=== PATIENT | male | born 1935 | race Caucasian/White ===

== ENCOUNTER → 2020-04-28 10:02 | Outpatient (BNVA) | payer MEDICARE, SELFPAY | PROVIDERS: PCP Internal Medicine; Referring Provider Internal Medicine; Visit Provider Urology | DX: Z76.89 Persons encountering health services in other specified circumstances (principal) | CPT/HCPCS: Q3014 ==

== ENCOUNTER → 2020-10-26 15:29 | Outpatient (BNVA) | payer MEDICARE, SELFPAY | PROVIDERS: PCP Internal Medicine; Visit Provider Urology | DX: C61 Malignant neoplasm of prostate (principal); R97.21 Rising PSA following treatment for malignant neoplasm of prostate | CPT/HCPCS: Q3014 ==

== ENCOUNTER → 2021-03-03 09:35 | Outpatient (BNVA) | payer MEDICARE, SELFPAY | PROVIDERS: PCP Internal Medicine; Visit Provider Urology | CPT/HCPCS: Q3014 ==

== ENCOUNTER → 2021-06-29 08:11 | Outpatient (BNVA) | payer MEDICARE, SELFPAY | PROVIDERS: PCP Internal Medicine; Visit Provider Urology | DX: Z13.89 Encounter for screening for other disorder (principal) | CPT/HCPCS: Q3014 ==

== ENCOUNTER → 2021-10-27 08:43 | Outpatient (BNVA) | payer MEDICARE, SELFPAY | PROVIDERS: PCP Internal Medicine; Visit Provider Urology | DX: C61 Malignant neoplasm of prostate (principal); R97.21 Rising PSA following treatment for malignant neoplasm of prostate | CPT/HCPCS: Q3014 ==

== ENCOUNTER 2021-11-23 09:23 | Outpatient (REF) | payer MEDICARE, SELFPAY ==
--- NOTE | ~2021-11-23 | MM_ITS ---
EXAMINATION: BONE DENSITOMETRY CLINICAL INDICATION: Rising PSA following treatment for malignant neoplasm. COMPARISON: This is the patient's baseline examination. TECHNIQUE: Using a [employer] DXA System (software version: 13.1) manufactured by [employer], dual-energy x-ray absorptiometry was performed of the lumbar spine and left hip. The images are of good technical quality. Summary results are attached. FINDINGS: AP SPINE L1-L4: BMD 1.233 g/cm2, Z-score 0.9, T-score 0.1, normal. LEFT FEMUR, NECK: BMD 0.779 g/cm2, Z-score -0.5, T-score -2.2, osteopenia. LEFT FEMUR, TOTAL: BMD 0.893 g/cm2, Z-score 0.0, T-score -1.4, osteopenia. IDENTIFIED RISK FACTORS: Height loss, family history (parental hip fracture). HISTORY OF FRACTURE: Wrist. MEDICATIONS: None listed. MM/XR DEXA axial skeleton IMPRESSION: 1. DIAGNOSIS: Osteopenia based on the lowest T-score value of -2.2 in the femoral neck applying World Health Organization criteria. 2. 10-YEAR FRACTURE RISK PREDICTION, FRAX: Major osteoporotic fracture (clinical spine, forearm, hip or shoulder) 12.2%. Hip fracture 5.1%. 3. Treatment Recommendations: NOF guidelines recommend consideration for treatment in postmenopausal women and men age 50 and older presenting with the following: -A hip or vertebral (clinical or morphometric) fracture. -T-score less than or equal to -2.5 at the femoral neck or spine after appropriate evaluation to exclude secondary causes. -Low bone mass at the hip or spine and a 10-year fracture probability by FRAX of greater than or equal to 3% for hip fracture or greater than or equal to 20% for major osteoporotic fracture based on the [place] adapted WHO algorithm. 4. Other Recommendations: All treatment decisions require clinical judgment and consideration of individual patient factors, including patient preferences, comorbidities, previous drug use, risk factors not captured in the FRAX model (e.g. frailty, falls, vitamin D deficiency, increased bone turnover, interval significant decline in bone density) and possible under or overestimation of fracture risk by FRAX. Additional medical evaluation for secondary cause of low bone mineral density may be appropriate. FUTURE SCAN RECOMMENDATION: People with diagnosed cases of osteoporosis or at high risk for fracture should have regular bone mineral density tests. For patients eligible for Medicare, routine testing is allowed once every 2 years. The testing frequency can be increased to one year for patients who have rapidly progressing disease, those who are receiving or discontinuing medical therapy to restore bone mass, or have additional risk factors.
== END 2021-11-23 09:24 | disposition home or self-care (01) ==
LOC: HO.MAMMO 09:23
PROVIDERS: Visit Provider Urology
DX: Z13.820 Encounter for screening for osteoporosis (principal); M85.88 Other specified disorders of bone density and structure, other site; R97.21 Rising PSA following treatment for malignant neoplasm of prostate
CPT/HCPCS: 77080

== ENCOUNTER → 2021-12-04 09:25 | Outpatient (REF) | payer MEDICARE, SELFPAY ==
--- NOTE | ~2021-12-04 | NM_ITS ---
EXAMINATION: NM BONE SCAN OF THE WHOLE BODY CLINICAL INFORMATION: Prostate neoplasm. COMPARISON: No films to compare. TECHNIQUE: Multiple gamma scintillation camera images of the whole body were performed 3.25 hours following the intravenous administration of 28 mCi Tc-99m MDP. FINDINGS: In the head, some uptake in the maxillary region and sinus region may be related to dental/sinus disease. In the thoracic cage and upper extremities, some uptake in the partially visualized wrist on the right and base of the thumb on the left. These areas are only partially seen. These may be degenerative in nature. In the spine, some uptake at the cervicothoracic junction on the right. This may be degenerative. Uptake is mild. Of more concern here is block-like uptake at D11 . This is suspicious. Mild uptake in the lower lumbar region at L4-L5 on the right and at L5-S1 on the left which may be degenerative. In the pelvis, unremarkable. In the lower extremities, some uptake about the knees is likely degenerative and some mild spotty uptake in the tarsal regions likely degenerative. No other definite bony abnormalities are noted. The urinary bladder and faint visualization of both kidneys are noted. NM/NM bone scan whole body IMPRESSION: Suspicious uptake at the level of D11 . Further evaluation is warranted. A metastatic lesion would need to be considered here. Otherwise more mild areas of uptake in the spine which are likely degenerative but plain films would be recommended to fully evaluate versus CT. Other areas described are likely degenerative in nature.
== END ==
LOC: HO.NUCMED 09:25
PROVIDERS: PCP Internal Medicine; Visit Provider Urology
DX: C61 Malignant neoplasm of prostate (principal); C79.51 Secondary malignant neoplasm of bone; R97.21 Rising PSA following treatment for malignant neoplasm of prostate
CPT/HCPCS: 78306; A9503

== ENCOUNTER → 2021-12-27 13:24 | Outpatient (BNVA) | payer MEDICARE, SELFPAY | PROVIDERS: PCP Internal Medicine; Visit Provider Urology | DX: R97.21 Rising PSA following treatment for malignant neoplasm of prostate (principal); C61 Malignant neoplasm of prostate; N40.1 Benign prostatic hyperplasia with lower urinary tract symptoms; N13.8 Other obstructive and reflux uropathy | CPT/HCPCS: Q3014 ==

== ENCOUNTER → 2022-05-01 12:56 | Outpatient (BNVA) | payer MEDICARE, SELFPAY | PROVIDERS: PCP Internal Medicine; Visit Provider Urology | DX: N40.1 Benign prostatic hyperplasia with lower urinary tract symptoms (principal); N13.8 Other obstructive and reflux uropathy; R97.21 Rising PSA following treatment for malignant neoplasm of prostate; C61 Malignant neoplasm of prostate | CPT/HCPCS: Q3014 ==

== ENCOUNTER → 2022-09-06 15:02 | Outpatient (BNVA) | payer MEDICARE, SELFPAY | PROVIDERS: PCP Internal Medicine; Visit Provider Urology | DX: C61 Malignant neoplasm of prostate (principal) | CPT/HCPCS: Q3014 ==

== ENCOUNTER 2023-01-09 15:35 | Outpatient (AMB) | payer MEDICARE, SELFPAY ==
--- NOTE | 2023-01-09 15:37 | MHC.OFFVIS ---
Intake Intake Visit Reasons: 4M PSA(set) Intake Note: Patient is present for Telephone Follow Up Urology Med: none Antibiotic Allergy:none Blood Thinner:none Allergies No Known Allergies Allergy (Verified 09/06/22 15:10) Medication List - Last Reconciled 01/09/23 by Bishop Kumar MD aspirin (Adult Low Dose Aspirin) 81 mg PO DAILY finasteride 5 mg PO DAILY 90 days HPI HPI Comments History of Present Illness Details Herberth is a very pleasant male. He is a patient Dr. Palomo ([place] [facility]). He was seen for the following urologic issues - prostate cancer - recurrent Telemedicine evaluation 15 minute consultation [employer] valeria Video attempted PSA slight rise Continue to follow Review in 3 months Prostate cancer: Initial low-grade prostate cancer with prostatectomy. 2004 - Had intermittent hormone therapy due to elevating PSA. PSA - 09/01 0.1, 04/03 0.2 T180, 10/03 0.2 T 115, 04/04 0.3, 10/04 0.3, 04/05 0.4, 11/04 1.0, 03/07 1.3, 07/08 1.6, 11/05 2.8, 12/06 3.3, 04/07 5.1, 09/06 4.3, 01/06 5.3 Prostate cancer was diagnosed 2004. Diagnosis was reached by needle biopsy, for elevated PSA, PSA at diagnosis 3.8. TNM Classification of Malignant Tumours (TNM) T1c. The D'Kathia (NCCN) risk category is Low Risk (PSA< 10, Gl < 7, T1c). Initial therapy included Primary treatment, Prostatectomy (RRP/Robotic) , Additional treatment, Observation , Additional treatment, Hormonal Blockade - Continuous 2010 GnRH agonists, , Additional treatment, Hormonal Blockade - Intermittent 2015, with, 5AR, Antiandrogen, , Additional treatment, Observation 2016. Recent imaging included 2015 , a bone scan negative - 2019 , a bone scan, focal T11 lesion unchanged from 12/01 - 12/06 bone scan with focal T11 lesion unchanged, DEX with osteopenia Therapeutic plan: Check levels in 4 months PFSH Medical History Asthma Erectile dysfunction after radical prostatectomy HTN (hypertension) Prostate cancer Surgical History H/O laminectomy History of surgery Review of Systems Const Denies chills and Denies fever(s) Card Reports no additional complaints and Denies syncope Resp Denies cough GI Denies abdominal pain and Denies heartburn Reports as per HPI and Denies change in libido Neuro Denies syncope Psych Denies change in libido Endo Denies change in libido Physical Exam Const General: cooperative, healthy appearing, comfortable and no acute distress Orientation/consciousness: patient oriented x3 HEENT Face and sinus: Yes normal facial exam Mouth: moist mucous membranes Neck Neck: Yes normal visual inspection, Yes full ROM and Yes trachea midline Chest Chest palpation & inspection: normal inspection of the chest Resp Effort & Inspection: normal respiratory effort, able to speak in complete sentences and no respiratory distress GI Inspection: Yes normal to inspection Back/Spine/Pelvis Cervical Spine: normal cervical lordosis Thoracic/Lumbar Spine: thoracic and lumbar spine normal to inspection Skin General skin exam: no rashes or lesions noted Neuro General: patient oriented x3, gait normal, tone normal and moves all extremities Extrem General: Yes normal to inspection and Yes capillary refill normal Assessment & Plan Assessment & Plan (1) Prostate cancer: Comment: Low-grade radical prostatectomy 2004, rising PSA treated with intermittent hormones through 2009 Code(s): C61 - Malignant neoplasm of prostate Plan 4 Month follow-up Orders: Orders Prostate Specific Antigen 4 Months C61 - Malignant neoplasm of prostate Medications: New finasteride 5 mg PO DAILY 90 tabs 1RF 90 days C61 - Malignant neoplasm of prostate, N13.8 - Other obstructive and reflux uropathy, N40.1 - Benign prostatic hyperplasia with lower urinary tract symptoms, R33.9 - Retention of urine, unspecified Patient Instructions: Imaging studies, laboratory and physical exam results were discussed and reviewed in detail. No major barriers to patient understanding were identified. An opportunity to ask questions regarding the treatment plan was provided. All questions were answered. The patient expressed understanding and agreement with the above treatment plan. The patient is aware they should contact our office by phone for worsening of their current condition or the appearance of new urologic symptoms. Compliance is encouraged with any medications and followup testing that is ordered. It is a privilege to participate in the urologic care of your patient. If you have any questions or concerns regarding treatment for the above conditions, or other urologic issues, please do not hesitate to contact me. The office telephone contact is [phone]. This note is constructed using voice recognition software. While every effort has been made to ensure accuracy cytology supervisor errors may have been included. Yours sincerely, Dr Bishop Kumar MD, DANA [facility] - Urology Providers of Expert, Compassionate Care for the Genitourinary System Telehealth Telehealth Location of provider rendering services: practice address Location of patient: address on file Patient Identification confirmed using: Name, : Yes Telehealth method: video Patient verbally consented to treatment: Yes Patient verbally consented to billing insurance company: Yes Patient informed of any privacy concerns related to visit: Yes Coding Level of Care Code Tele Est Pt Level 3 (11890) Diagnoses Prostate cancer C61
== END 2023-01-09 17:17 | disposition home or self-care (01) ==
LOC: HO.HUSH 15:35
PROVIDERS: PCP Internal Medicine; Visit Provider Urology
DX: C61 Malignant neoplasm of prostate (principal)
CPT/HCPCS: 99442

== ENCOUNTER → 2023-01-09 15:35 | Outpatient (BNVA) | payer MEDICARE, SELFPAY | PROVIDERS: PCP Internal Medicine; Visit Provider Urology ==

== ENCOUNTER 2023-05-15 13:45 | Outpatient (AMB) | payer MEDICARE, SELFPAY ==
--- NOTE | 2023-05-15 13:45 | A.OFFVIS_ITS ---
Intake Intake Visit Reasons: 4m/PSA(psa?) Intake Note: Patient is present for Telephone Follow Up Urology Med: Finasteride Antibiotic Allergy:none Blood Thinner: Aspirin Medical Staff Manager Required: No Accompanied by: Self / Same As Patient Allergies No Known Allergies Allergy (Verified 05/15/23 13:46) Medication List - Last Reconciled 05/15/23 by Bishop Kumar MD aspirin (Adult Low Dose Aspirin) 81 mg PO DAILY finasteride 5 mg PO DAILY 90 days HPI HPI Comments History of Present Illness Details Herberth is a very pleasant male. He is a patient Dr. Palomo ([place] [facility]). He was seen for the following urologic issues - prostate cancer - recurrent Telemedicine evaluation 15 minute consultation [employer] valeria Video attempted Discussed PSA rise Doubling time is less than 12 months Suggested GnRH At this point he would prefer to hold off given his age and how the GnRH medication makes him feel He understands potential risks Four month follow-up Biochemically recurrent castrate sensitive prostate cancer 05/09 - PSA 7.7 Doubling time less than 12 months Prostate cancer: Initial low-grade prostate cancer with prostatectomy. 2004 - Had intermittent hormone therapy due to elevating PSA. PSA - 09/01 0.1, 04/03 0.2 T180, 10/03 0.2 T 115, 04/04 0.3, 10/04 0.3, 04/05 0.4, 11/04 1.0, 03/07 1.3, 07/08 1.6, 11/05 2.8, 12/06 3.3, 04/07 5.1, 09/06 4.3, 01/06 5.3 Prostate cancer was diagnosed 2004. Diagnosis was reached by needle biopsy, for elevated PSA, PSA at diagnosis 3.8. TNM Classification of Malignant Tumours (TNM) T1c. The D'Kathia (NCCN) risk category is Low Risk (PSA< 10, Gl < 7, T1c). Initial therapy included Primary treatment, Prostatectomy (RRP/Robotic) , Additional treatment, Observation , Additional treatment, Hormonal Blockade - Continuous 2010 GnRH agonists, , Additional treatment, Hormonal Blockade - Intermittent 2015, with, 5AR, Antiandrogen, , Additional treatment, Observation 2016. 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 HTN (hypertension) Prostate cancer Surgical History H/O laminectomy History of surgery Review of Systems Const All systems reviewed & are unremarkable except as noted in HPI and below Reports no additional complaints Resp Reports no additional complaints GI Reports no additional complaints Reports as per HPI Musc Reports no additional complaints Physical Exam Telemedicine evaluation Appropriate responses Regular breathing rate and rhythm HEENT Head: Yes normal to inspection Ears: hearing grossly normal bilaterally Eyes General: appearance normal, both eyes and all related structures Neck Neck: Yes normal visual inspection Chest Chest palpation & inspection: normal inspection of the chest Resp Effort & Inspection: normal respiratory effort and able to speak in complete sentences Assessment & Plan Assessment & Plan (1) Biochemically recurrent castration-sensitive adenocarcinoma of prostate: Code(s): C61 - Malignant neoplasm of prostate; R97.21 - Rising PSA following treatment for malignant neoplasm of prostate; Z19.1 - Hormone sensitive malignancy status Plan Four month follow-up PSA Orders: Orders Prostate Specific Antigen 4 Months C61 - Malignant neoplasm of prostate Patient Instructions: Imaging studies, laboratory and physical exam results were discussed and reviewed in detail. No major barriers to patient understanding were identified. An opportunity to ask questions regarding the treatment plan was provided. All questions were answered. The patient expressed understanding and agreement with the above treatment plan. The patient is aware they should contact our office by phone for worsening of their current condition or the appearance of new urologic symptoms. Compliance is encouraged with any medications and followup testing that is ordered. It is a privilege to participate in the urologic care of your patient. If you have any questions or concerns regarding treatment for the above conditions, or other urologic issues, please do not hesitate to contact me. The office telephone contact is [phone]. This note is constructed using voice recognition software. While every effort has been made to ensure accuracy auto mechanic apprentice errors may have been included. Yours sincerely, Dr Bishop Kumar MD, DA[facility] - Urology Providers of Expert, Compassionate Care for the Genitourinary System Telehealth Telehealth Location of provider rendering services: practice address Location of patient: address on file Patient Identification confirmed using: Name, : Yes Telehealth method: video Patient verbally consented to treatment: Yes Patient verbally consented to billing insurance company: Yes Patient informed of any privacy concerns related to visit: Yes Coding Level of Care Code Tele Est Pt Level 3 (12996) Diagnoses Biochemically recurrent castration-sensitive adenocarcinoma of prostate C61; R97.21; Z19.1
== END 2023-05-15 14:12 | disposition home or self-care (01) ==
LOC: HO.HUSH 13:45
PROVIDERS: PCP Internal Medicine; Visit Provider Urology
DX: C61 Malignant neoplasm of prostate (principal); R97.21 Rising PSA following treatment for malignant neoplasm of prostate; Z19.1 Hormone sensitive malignancy status
CPT/HCPCS: 99213

== ENCOUNTER → 2023-05-15 13:45 | Outpatient (BNVA) | payer MEDICARE, SELFPAY | PROVIDERS: PCP Internal Medicine; Visit Provider Urology ==

== ENCOUNTER 2023-09-10 13:21 | Outpatient (AMB) | payer MEDICARE, SELFPAY ==
--- NOTE | 2023-09-10 13:29 | MHC.OFFVIS ---
Intake Intake Visit Reasons: 4M PSA(set)vm to confirm Intake Note: Patient is Present for Follow Up Urology Medication:Finasteride Antibiotic Allergies:None Blood Thinners: Aspirin PVR: 40 Allergies No Known Allergies Allergy (Verified 09/10/23 13:34) HPI HPI Comments History of Present Illness Details Herberth is a very pleasant male. He is a patient Dr. Palomo ([place] [facility]). He was seen for the following urologic issues - prostate cancer - recurrent hormonally sensitive PSA has fallen to 5.7 We can continue to follow and remain on 5 AR Should be on dutasteride through [place] Biochemically recurrent castrate sensitive prostate cancer 05/09 - PSA 7.7, 09/07 5.7 Prostate cancer: Initial low-grade prostate cancer with prostatectomy. 2004 - Had intermittent hormone therapy due to elevating PSA. PSA - 09/01 0.1, 04/03 0.2 T180, 10/03 0.2 T 115, 04/04 0.3, 10/04 0.3, 04/05 0.4, 11/04 1.0, 03/07 1.3, 07/08 1.6, 11/05 2.8, 12/06 3.3, 04/07 5.1, 09/06 4.3, 01/06 5.3, 09/07 5.7 Prostate cancer was diagnosed 2004. Diagnosis was reached by needle biopsy, for elevated PSA, PSA at diagnosis 3.8. TNM Classification of Malignant Tumours (TNM) T1c. The D'Kathia (NCCN) risk category is Low Risk (PSA< 10, Gl < 7, T1c). Initial therapy included Primary treatment, Prostatectomy (RRP/Robotic) , Additional treatment, Observation , Additional treatment, Hormonal Blockade - Continuous 2010 GnRH agonists, , Additional treatment, Hormonal Blockade - Intermittent 2015, with, 5AR, Antiandrogen, , Additional treatment, Observation 2016. Recent imaging included 2015 , a bone scan negative - 2018 , a bone scan, focal T11 lesion unchanged from 12/01 - 12/06 bone scan with focal T11 lesion unchanged, DEX with osteopenia Therapeutic plan: Check levels in 6 months PFSH Medical History Asthma HTN (hypertension) Erectile dysfunction after radical prostatectomy Prostate cancer Surgical History History of surgery H/O laminectomy Office Procedures Post Void Residual Post Residual Void Post Void Residual (PVR): 40 [id number] Void Residual by ultrasound Assessment & Plan Assessment & Plan (1) Prostate cancer: Comment: Low-grade radical prostatectomy 2004, rising PSA treated with intermittent hormones through 2009 Code(s): C61 - Malignant neoplasm of prostate (2) BPH w urinary obs/LUTS: Code(s): N40.1 - Benign prostatic hyperplasia with lower urinary tract symptoms; N13.8 - Other obstructive and reflux uropathy (3) Biochemically recurrent castration-sensitive adenocarcinoma of prostate: Code(s): C61 - Malignant neoplasm of prostate; R97.21 - Rising PSA following treatment for malignant neoplasm of prostate; Z19.1 - Hormone sensitive malignancy status Plan Remain on dutasteride Six-month follow-up PSA Orders: Orders AMB Post Void Residual by ultrasound Today N13.8 - Other obstructive and reflux uropathy, N40.1 - Benign prostatic hyperplasia with lower urinary tract symptoms Patient Instructions: Imaging studies, laboratory and physical exam results were discussed and reviewed in detail. No major barriers to patient understanding were identified. An opportunity to ask questions regarding the treatment plan was provided. All questions were answered. The patient expressed understanding and agreement with the above treatment plan. The patient is aware they should contact our office by phone for worsening of their current condition or the appearance of new urologic symptoms. Compliance is encouraged with any medications and followup testing that is ordered. It is a privilege to participate in the urologic care of your patient. If you have any questions or concerns regarding treatment for the above conditions, or other urologic issues, please do not hesitate to contact me. The office telephone contact is [phone]. This note is constructed using voice recognition software. While every effort has been made to ensure accuracy reproduction technician errors may have been included. Yours sincerely, Dr Bishop Kumar MD, DANA [facility] - Urology Providers of Expert, Compassionate Care for the Genitourinary System Coding Level of Care Code Est Pt Level 3 (12968) Diagnoses Prostate cancer C61 BPH w urinary obs/LUTS N40.1; N13.8 Biochemically recurrent castration-sensitive adenocarcinoma of prostate C61; R97.21; Z19.1 CPT Codes Post Residual Void - PVR CPT Code: 62078-[id number] Void Residual by ultrasound ([id number])
== END 2023-09-10 14:11 | disposition home or self-care (01) ==
PROVIDERS: PCP Internal Medicine; Visit Provider Urology
DX: C61 Malignant neoplasm of prostate (principal); N40.1 Benign prostatic hyperplasia with lower urinary tract symptoms; N13.8 Other obstructive and reflux uropathy; R97.21 Rising PSA following treatment for malignant neoplasm of prostate; Z19.1 Hormone sensitive malignancy status
CPT/HCPCS: 99213

== ENCOUNTER → 2023-09-10 13:21 | Outpatient (BNVA) | payer MEDICARE, SELFPAY | PROVIDERS: PCP Internal Medicine; Visit Provider Urology | DX: C61 Malignant neoplasm of prostate (principal); N40.1 Benign prostatic hyperplasia with lower urinary tract symptoms; N13.8 Other obstructive and reflux uropathy; R97.21 Rising PSA following treatment for malignant neoplasm of prostate; Z19.1 Hormone sensitive malignancy status | CPT/HCPCS: 51798; 99212 ==

== ENCOUNTER 2024-03-19 10:25 | Outpatient (AMB) | payer MEDICARE, SELFPAY ==
--- NOTE | 2024-03-19 11:12 | A.OFFVIS_ITS ---
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 He is a patient Dr. Palomo ([place] [facility]). He was seen for the following urologic issues - prostate cancer - recurrent hormonally sensitive PSA continued to rise to 10.2 On dutasteride Recommend 18 months hormones When on GnRH he does notice quality of life negative impact with lack of energy Discussed secondary options Will try 250 mg daily abiraterone with low-fat breakfast There is data to show this is effective Will any require low-dose prednisone Three-month follow-up Biochemically recurrent castrate sensitive prostate cancer 05/09 - PSA 7.7, 09/07 5.7, 03/10 10.2 Prostate cancer: Initial low-grade prostate cancer with prostatectomy. 2004 - Had intermittent hormone therapy due to elevating PSA. PSA - 09/01 0.1, 04/03 0.2 T180, 10/03 0.2 T 115, 04/04 0.3, 10/04 0.3, 04/05 0.4, 11/04 1.0, 03/07 1.3, 07/08 1.6, 11/05 2.8, 12/06 3.3, 04/07 5.1, 09/06 4.3, 01/06 5.3, 09/07 5.7 Prostate cancer was diagnosed 2004. Diagnosis was reached by needle biopsy, for elevated PSA, PSA at diagnosis 3.8. TNM Classification of Malignant Tumours (TNM) T1c. The D'Kathia (NCCN) risk category is Low Risk (PSA< 10, Gl < 7, T1c). Initial therapy included Primary treatment, Prostatectomy (RRP/Robotic) , Additional treatment, Observation , Additional treatment, Hormonal Blockade - Continuous 2010 GnRH agonists, , Additional treatment, Hormonal Blockade - Intermittent 2015, with, 5AR, Antiandrogen, , Additional treatment, Observation 2016. Recent imaging included 2016 , a bone scan negative - 2019 , a bone scan, focal T11 lesion unchanged from 12/01 - 12/06 bone scan with focal T11 lesion unchanged, DEX with osteopenia Therapeutic plan: Check levels in 6 months [facility] Medical History Asthma HTN (hypertension) Erectile dysfunction after radical prostatectomy Prostate cancer Surgical History History of surgery H/O laminectomy Review of Systems Const Denies chills and Denies fever(s) Card Reports no additional complaints and Denies syncope Resp Denies cough GI Denies abdominal pain and Denies heartburn Reports as per HPI and Denies change in libido Neuro Denies syncope Psych Denies change in libido Endo Denies change in libido Physical Exam Const General: cooperative, healthy appearing, comfortable and no acute distress Orientation/consciousness: patient oriented x3 HEENT Face and sinus: Yes normal facial exam Mouth: moist mucous membranes Neck Neck: Yes normal visual inspection, Yes full ROM and Yes trachea midline Chest Chest palpation & inspection: normal inspection of the chest Resp Effort & Inspection: normal respiratory effort, able to speak in complete sentences and no respiratory distress GI Inspection: Yes normal to inspection Back/Spine/Pelvis Cervical Spine: normal cervical lordosis Thoracic/Lumbar Spine: thoracic and lumbar spine normal to inspection Skin General skin exam: no rashes or lesions noted Neuro General: patient oriented x3, gait normal, tone normal and moves all extremities Extrem General: Yes normal to inspection and Yes capillary refill normal Assessment & Plan Assessment & Plan (1) Biochemically recurrent castration-sensitive adenocarcinoma of prostate: Code(s): C61 - Malignant neoplasm of prostate; R97.21 - Rising PSA following treatment for malignant neoplasm of prostate; Z19.1 - Hormone sensitive malignancy status Category: Medical (2) Rising PSA following treatment for malignant neoplasm of prostate: Code(s): R97.21 - Rising PSA following treatment for malignant neoplasm of prostate Category: Medical Plan Three-month follow-up blood work Orders: Orders Testosterone, Total 3 Months R97.21 - Rising PSA following treatment for malignant neoplasm of prostate Prostate Specific Antigen 3 Months R97.21 - Rising PSA following treatment for malignant neoplasm of prostate Medications: New prednisone 2.5 mg PO DAILY 30 days 30 tabs 2RF C61 - Malignant neoplasm of prostate, C77.2 - 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 No major barriers to patient understanding were identified. An opportunity to ask questions regarding the treatment plan was provided. All questions were answered. The patient expressed understanding and agreement with the above treatment plan. The patient is aware they should contact our office by phone for worsening of their current condition or the appearance of new urologic symptoms. Compliance is encouraged with any medications and followup testing that is ordered. It is a privilege to participate in the urologic care of your patient. If you have any questions or concerns regarding treatment for the above conditions, or other urologic issues, please do not hesitate to contact me. The office telephone contact is [phone]. This note is constructed using voice recognition software. While every effort has been made to ensure accuracy scrap metal burner errors may have been included. Yours sincerely, Dr Bishop Kumar MD, [facility] - Urology Providers of Expert, Compassionate Care for the Genitourinary System Coding Level of Care Code Est Pt Level 4 (18383) Diagnoses Biochemically recurrent castration-sensitive adenocarcinoma of prostate C61; R97.21; Z19.1 Rising PSA following treatment for malignant neoplasm of prostate R97.21
== END 2024-03-19 11:48 | disposition home or self-care (01) ==
PROVIDERS: PCP Internal Medicine; Visit Provider Urology
DX: C61 Malignant neoplasm of prostate (principal); R97.21 Rising PSA following treatment for malignant neoplasm of prostate; Z19.1 Hormone sensitive malignancy status
CPT/HCPCS: 99214

== ENCOUNTER → 2024-03-19 10:25 | Outpatient (BNVA) | payer MEDICARE, SELFPAY | PROVIDERS: PCP Internal Medicine; Visit Provider Urology | DX: C61 Malignant neoplasm of prostate (principal); R97.21 Rising PSA following treatment for malignant neoplasm of prostate; Z19.1 Hormone sensitive malignancy status | CPT/HCPCS: 99212 ==

== ENCOUNTER 2024-06-30 09:44 | Outpatient (AMB) | payer MEDICARE, SELFPAY ==
--- NOTE | 2024-06-30 09:46 | MHC.OFFVIS ---
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 He is a patient Dr. Palomo ([place] [facility]). He was seen for the following urologic issues - prostate cancer - recurrent hormonally sensitive Three-month follow-up T has been reduced with abiraterone - 80 Lab cord did not check PSA Order PSA today Continue dutasteride Three-month follow-up with DEXA and bone scan When on GnRH he does notice quality of life negative impact with lack of energy Discussed secondary options Did not try 250 mg daily abiraterone with low-fat breakfast Biochemically recurrent castrate sensitive prostate cancer 05/09 - PSA 7.7, 09/07 5.7, 03/10 10.2 Prostate cancer: Initial low-grade prostate cancer with prostatectomy. 2004 - Had intermittent hormone therapy due to elevating PSA. PSA - 09/01 0.1, 04/03 0.2 T180, 10/03 0.2 T 115, 04/04 0.3, 10/04 0.3, 04/05 0.4, 11/04 1.0, 03/07 1.3, 07/08 1.6, 11/05 2.8, 12/06 3.3, 04/07 5.1, 09/06 4.3, 01/06 5.3, 09/07 5.7, 04/09 10.2 Prostate cancer was diagnosed 2004. Diagnosis was reached by needle biopsy, for elevated PSA, PSA at diagnosis 3.8. TNM Classification of Malignant Tumours (TNM) T1c. The D'Kathia (NCCN) risk category is Low Risk (PSA< 10, Gl < 7, T1c). Initial therapy included Primary treatment, Prostatectomy (RRP/Robotic) , Additional treatment, Observation , Additional treatment, Hormonal Blockade - Continuous 2010 GnRH agonists, , Additional treatment, Hormonal Blockade - Intermittent 2015, with, 5AR, Antiandrogen, , Additional treatment, Observation 2016. 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 Prostate cancer Surgical History History of surgery H/O laminectomy Review of Systems Const Denies chills and Denies fever(s) Card Reports no additional complaints and Denies syncope Resp Denies cough GI Denies abdominal pain and Denies heartburn Reports as per HPI and Denies change in libido Neuro Denies syncope Psych Denies change in libido Endo Denies change in libido Physical Exam Const General: cooperative, healthy appearing, comfortable and no acute distress Orientation/consciousness: patient oriented x3 HEENT Face and sinus: Yes normal facial exam Mouth: moist mucous membranes Neck Neck: Yes normal visual inspection, Yes full ROM and Yes trachea midline Chest Chest palpation & inspection: normal inspection of the chest Resp Effort & Inspection: normal respiratory effort, able to speak in complete sentences and no respiratory distress GI Inspection: Yes normal to inspection Back/Spine/Pelvis Cervical Spine: normal cervical lordosis Thoracic/Lumbar Spine: thoracic and lumbar spine normal to inspection Skin General skin exam: no rashes or lesions noted Neuro General: patient oriented x3, gait normal, tone normal and moves all extremities Extrem General: Yes normal to inspection and Yes capillary refill normal Results AMB Urinalysis, Automated UA Leukoctes 70 Steve/uL Last Edit by MICK Ocampo on 06/30/24 09:59 UA Nitrite Negative Last Edit by MICK Ocampo on 06/30/24 09:59 UA Urobilinogen 0.2 mg/dL Last Edit by MICK Ocampo on 06/30/24 09:59 UA Protein 0 mg/dL Last Edit by MICK Ocampo on 06/30/24 09:59 UA pH 6.0 Last Edit by MICK Ocampo on 06/30/24 09:59 UA Blood 0 Manish/uL Last Edit by MICK Ocampo on 06/30/24 09:59 UA Specific [place] 1.015 Last Edit by MICK Ocampo on 06/30/24 09:59 UA Ketone Negative Last Edit by MICK Ocampo on 06/30/24 09:59 UA Bilirubin 0 mg/dL Last Edit by MICK Ocampo on 06/30/24 09:59 UA Glucose 0 mg/dL Last Edit by MICK Ocampo on 06/30/24 09:59 Results Reviewed Results Reviewed: Laboratory Last Values Urine pH (Auto) 6.0 06/30/24 09:58 Specific [place] (Auto) 1.015 06/30/24 09:58 Urine Protein (Auto) 0 mg/dL 06/30/24 09:58 Glucose (UA)(Auto) 0 mg/dL 06/30/24 09:58 Urine Ketones (Auto) Negative 06/30/24 09:58 Urine Blood (Auto) 0 Manish/uL 06/30/24 09:58 Urine Nitrite (Auto) Negative 06/30/24 09:58 Urine Bilirubin (Auto) 0 mg/dL 06/30/24 09:58 Urine Urobilinogen (Auto) 0.2 mg/dL 06/30/24 09:58 Leukocyte Esterase (Auto) 70 Steve/uL 06/30/24 09:58 Assessment & Plan Assessment & Plan (1) Biochemically recurrent castration-sensitive adenocarcinoma of prostate: Code(s): C61 - Malignant neoplasm of prostate; R97.21 - Rising PSA following treatment for malignant neoplasm of prostate; Z19.1 - Hormone sensitive malignancy status Category: Medical (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: Code(s): C61 - Malignant neoplasm of prostate; C79.51 - Secondary malignant neoplasm of bone Category: Medical Plan PSA today Three-month follow-up imaging Orders: Orders XR DEXA axial skeleton 3 Months C61 - Malignant neoplasm of prostate, R97.21 - Rising PSA following treatment for malignant neoplasm of prostate, Z19.1 - Hormone sensitive malignancy status NM bone scan whole body 3 Months C61 - Malignant neoplasm of prostate, R97.21 - Rising PSA following treatment for malignant neoplasm of prostate, Z19.1 - Hormone sensitive malignancy status AMB Urinalysis Automated Today Z13.9 - Encounter for screening, unspecified Prostate Specific Antigen Today C61 - Malignant neoplasm of prostate, R97.21 - Rising PSA following treatment for malignant neoplasm of prostate, Z19.1 - Hormone sensitive malignancy status Patient Instructions: Imaging studies, laboratory and physical exam results were discussed and reviewed in detail. No major barriers to patient understanding were identified. An opportunity to ask questions regarding the treatment plan was provided. All questions were answered. The patient expressed understanding and agreement with the above treatment plan. The patient is aware they should contact our office by phone for worsening of their current condition or the appearance of new urologic symptoms. Compliance is encouraged with any medications and followup testing that is ordered. It is a privilege to participate in the urologic care of your patient. If you have any questions or concerns regarding treatment for the above conditions, or other urologic issues, please do not hesitate to contact me. The office telephone contact is [phone]. This note is constructed using voice recognition software. While every effort has been made to ensure accuracy supervisor loading errors may have been included. Yours sincerely, Dr Bishop Kumar MD, [facility] - Urology Providers of Expert, Compassionate Care for the Genitourinary System Coding Level of Care Code Est Pt Level 4 (97143) Diagnoses Biochemically recurrent castration-sensitive adenocarcinoma of prostate C61; R97.21; Z19.1 Prostate cancer metastatic to bone C61; C79.51
== END 2024-06-30 10:15 | disposition home or self-care (01) ==
PROVIDERS: PCP Internal Medicine; Visit Provider Urology
DX: C61 Malignant neoplasm of prostate (principal); R97.21 Rising PSA following treatment for malignant neoplasm of prostate; Z19.1 Hormone sensitive malignancy status; C79.51 Secondary malignant neoplasm of bone; Z13.9 Encounter for screening, unspecified
CPT/HCPCS: 99214

== ENCOUNTER 2024-06-30 10:25 | Outpatient (REF) | payer MEDICARE, SELFPAY ==
[2024-06-30 11:37] LABS: Prostate Specific Antigen 14.28 ng/mL (<0.05-4.0)
== END 2024-06-30 10:26 | disposition home or self-care (01) ==
LOC: HO.10HDL 10:25
PROVIDERS: Visit Provider Urology
DX: Z12.5 Encounter for screening for malignant neoplasm of prostate (principal); C61 Malignant neoplasm of prostate; R97.21 Rising PSA following treatment for malignant neoplasm of prostate; Z19.1 Hormone sensitive malignancy status
CPT/HCPCS: 36415; 84153

== ENCOUNTER → 2024-09-15 10:17 | Outpatient (REF) | payer MEDICARE, SELFPAY ==
--- NOTE | ~2024-09-15 | NM_ITS ---
EXAMINATION: NM BONE SCAN WHOLE BODY HISTORY: R97.21 - Rising PSA following treatment for malignant neoplasm of prostate. TECHNIQUE: A total body bone scan was performed following the intravenous administration of 27 mCi technetium 99m-MDP. Whole body planar images were obtained. COMPARISON: Comparison is made with the prior examination dated 12/04/2021. FINDINGS: Again seen is an intense focus of increased uptake at the T11 vertebral level, although this appears slightly less intense than on the prior study. Again, metastatic disease in this location is not excluded. There is faint uptake in the lower lumbar spine on the left without change which is likely degenerative in nature. Activity involving the left AC joint is also likely degenerative in nature. Mild degenerative uptake is noted at the base of the thumbs bilaterally. No additional foci of increased uptake are identified. There is normal bilateral renal uptake. NM/NM bone scan whole body IMPRESSION: Again seen is uptake at the T11 vertebral level which could represent metastatic disease. This is slightly less prominent than on the prior study. No scintigraphic evidence of new metastatic disease. Electronically signed by: Fredrick Mcconnell MD 09/15/2024 03:23 PM EDT
--- OUTSIDE RECORDS SUMMARY | 2024-09-15 12:04 | XMS_ITS | Clinical Summary ---
Author Organization [facility] Address [address] [place] [address] Phone Care Team Providers Care E Business Specialist Name Role Phone Dwaine Palomo MD Primary Care Provider [phone] Encounters Date Type Department Care Team Description 06/20/2024 9:41 AM EST - 06/20/2024 11:59 PM EST Hospital Encounter [facility] MRI [address] [place] [address] Acute pain Discharge Disposition: Home or Self Care from Last 3 Months Surgical History Surgery Date Site/Laterality Comments HERNIA REPAIR PROCEDURE: LA REPAIR FIRST ABDOMINAL WALL HERNIA OTHER SURGICAL HISTORY PROCEDURE: LA EXPLORATION N/FLWD SURG NECK ARTERY OTHER SURGICAL HISTORY PROCEDURE: LA EXPLORATION N/FLWD SURG NECK ARTERY PROSTATECTOMY PROCEDURE: PROSTATECTOMY BACK SURGERY PROCEDURE: HISTORICAL BACK SURGERY OTHER SURGICAL HISTORY 12/04/2017 Right PROCEDURE: LA RPR 1ST INGUN HRNA AGE 4 YRS/> REDUCIBLE; COMMENT: ppain since then Medical History Medical History Date Comments High cholesterol DX:High cholest jorge H/O prostatectomy DX:H/O prostat ectomy Hypertension DX:Hypertension Heart attack (CMS/HCC) DX:Heart attack (HCC) Prostate tumor DX:Prostate tumo r Sleep deficient DX:Sleep deficie nt COPD (chronic obstructive pu lmonary disease) (CMS/HCC) DX:COPD (chronic obstructive pulmonary disease) (HCC) Left carotid stenosis DX:Left ca rotid stenosis Right inguinal pain DX:Right ing uinal pain Groin pain, chronic, right DX:Gr oin pain, chronic, right Family History Medical History Relation Name Comments Other: Other Father Other: Other Mother Autoimmune disease Neg Hx Breast cancer Neg Hx Colon cancer Neg Hx Coronary artery disease Neg Hx Diabetes Neg Hx Heart attack Neg Hx Heart failure Neg Hx Hyperlipidemia Neg Hx Hypertension Neg Hx Mental illness Neg Hx Prostate cancer Neg Hx Sleep apnea Neg Hx Thyroid disease Neg Hx Relation Name Status Comments Father Mother Social History Tobacco Use Types Packs/Day Years Used Date Smoking Tobacco: Former Smokeless Tobacco: Never Alcohol Use Standard Drinks/Week Comments Yes 0 (1 standard drink = 0.6 oz pur e alcohol) Sex and Gender Information Value Date Recorded Sex Assigned at Not on file Legal Sex Male 5:10 PM EST Gender Identity Not on file Sexual Orientation Not on file Obstetrics History Plan of Treatment Health Maintenance Due Date Last Done Comments RSV Immunization Patients 60+ Years Old (1 - 1-dose 75+ series) 2009 Cholesterol Screening (Lipid Panel) 05/16/2022 Depression Screening 05/16/2022 Falls Risk Assessment 05/16/2022 Medicare Annual Wellness Visit 05/16/2022 Social Influencers of Health Screening 05/16/2022 Hypertension/CHF/CAD Annual BMP Blood Test 05/31/2022 DTaP,Tdap,and Td Vaccines (5 - Td or Tdap) 12/28/2032 12/28/2022, 03/13/2019, 08/11/2012, Additional history exists Pneumococcal Vaccine: 50+ Years Completed 03/21/2020, 12/20/2014, 06/17/2004 Zoster Vaccines Completed 10/26/2020, 10/2019, 03/25/2012 Influenza Vaccine Completed 03/25/2024, , 03/31/2023, Additional history exists COVID-19 Vaccine Completed 04/14/2024, , 04/09/2022, Additional history exists HIB Vaccines Aged Out No longer eligi ble based on patient's age to complete this topic HPV Vaccines Aged Out No longer eligi ble based on patient's age to complete this topic Hepatitis A Vaccines Aged Out No long er eligible based on patient's age to complete this topic Hepatitis B Vaccines Aged Out No long er eligible based on patient's age to complete this topic IPV Vaccines Aged Out No longer eligi ble based on patient's age to complete this topic MMR Vaccines Aged Out No longer eligi ble based on patient's age to complete this topic Meningococcal ACWY Vaccine Aged Out N o longer eligible based on patient's age to complete this topic Meningococcal B Vacine Aged Out No lo nger eligible based on patient's age to complete this topic RSV Immunization Patients Under 20 months Aged Out No longer eligible based on patient's age to complete this topic Varicella Vaccines Aged Out No longer eligible based on patient's age to complete this topic Procedures Procedure Name Priority Date/Time Associated Diagnosis Comments MR SHOULDER WO CONTRAST LEFT Routine 06/20/2024 11:21 AM EST Acute pain from Last 3 Months Results * MR Shoulder wo Contrast Left (06/20/2024 11:21 AM EST) Anatomical Region Laterality Modality Upper Extremities, Shoulder Left Magn etic Resonance 06/25/2024 4:14 PM EST Impressions 06/25/2024 4:28 PM EST Acute to subacute fracture of the lateral clavicle without displacement. ??No additional fractures. Sprain of the coracoclavicular ligaments. Intact rotator cuff and labrum. -------- FINAL REPORT -------- Dictated By: WAYNE CANTRELL Dictated Date: 06/25/2024 16:14 ET Assigned Physician: WAYNE CANTRELL Reviewed and Electronically Signed By: WAYNE CANTRELL Signed Date: 06/25/2024 16:28 ET Workstation ID: [id number] Transcribed By: Self Edit Transcribed Date: 06/25/2024 16:14 ET Narrative 06/25/2024 4:28 PM EST PROCEDURE: Left shoulder MRI INDICATION: Pain TECHNIQUE: Multiplanar, multisequence MRI of the left shoulder Without contrast. COMPARISON: ??Radiograph 06/11/2024 FINDINGS: Acute to subacute fracture of the lateral clavicle without displacement. ??There is surrounding edema. ??No additional fractures. Acromioclavicular joint alignment is preserved. ??Mild degenerative changes are seen at the acromioclavicular joint with capsular hypertrophy and undersurface spurring. There is thickening and high signal of the coracoclavicular ligaments without tear. ??Glenohumeral ligaments are intact. Rotator cuff tendinosis without tear. ??Muscle bulk is preserved. Biceps tendon is present within the bicipital groove and intact at the superior glenoid tubercle. ??No labral tear. Glenohumeral alignment is preserved. ??No focal full-thickness cartilage defects or bony humeral joint effusion. No significant subacromial/subdeltoid bursal fluid. No suspicious marrow replacing lesions, mass, or axillary adenopathy. Procedure Note Wayne Cantrell MD - 06/25/2024 PROCEDURE: Left shoulder MRI INDICATION: Pain TECHNIQUE: Multiplanar, multisequence MRI of the left shoulder Withoutcontrast. COMPARISON: Radiograph 06/11/2024 FINDINGS: Acute to subacute fracture of the lateral clavicle without displacement.There is surrounding edema. No additional fractures. Acromioclavicular joint alignment is preserved. Mild degenerative changesare seen at the acromioclavicular joint with capsular hypertrophy andundersurface spurring. There is thickening and high signal of the coracoclavicular ligamentswithout tear. Glenohumeral ligaments are intact. Rotator cuff tendinosis without tear. Muscle bulk is preserved. Biceps tendon is present within the bicipital groove and intact at thesuperior glenoid tubercle. No labral tear. Glenohumeral alignment is preserved. No focal full-thickness cartilagedefects or bony humeral joint effusion. No significant subacromial/subdeltoid bursal fluid. No suspicious marrow replacing lesions, mass, or axillary adenopathy. IMPRESSION: Acute to subacute fracture of the lateral clavicle without displacement.No additional fractures. Sprain of the coracoclavicular ligaments. Intact rotator cuff and labrum. -------- FINAL REPORT -------- Dictated By: WAYNE CANTRELL Dictated Date: 06/25/2024 16:14 ET Assigned Physician: WAYNE CANTRELL Reviewed and Electronically Signed By: WAYNE CANTRELL Signed Date: 06/25/2024 16:28 ET Workstation ID: [id number] Transcribed By: Self Edit Transcribed Date: 06/25/2024 16:14 ET Dwaine Palomo MD IM MRI PROCEDURES Final Res ult from Last 3 Months Insurance MEDICARE [facility] Care Teams E Business Specialist Relationship Specialty Start Date End Date Dwaine Paloom MD [address] [place] [id number] PCP - General Internal Medicine 06/15/24
== END ==
LOC: HO.NUCMED 10:17
PROVIDERS: PCP Internal Medicine; Visit Provider Urology
DX: R97.21 Rising PSA following treatment for malignant neoplasm of prostate (principal); C61 Malignant neoplasm of prostate; C79.51 Secondary malignant neoplasm of bone; Z19.1 Hormone sensitive malignancy status
CPT/HCPCS: 78306; A9503

== ENCOUNTER 2024-09-29 10:33 | Outpatient (AMB) | payer MEDICARE, SELFPAY ==
--- NOTE | 2024-09-29 10:35 | A.OFFVIS_ITS ---
Intake Visit Reasons: 3m/Imaging/PSA Intake Note: Patient is present for 3M/IMAGING/PSA Urology Medication:NONE Antibiotic Allergy:NONE Blood Thinner:ASPIRIN Instructor Knitting Required: No Allergies No Known Allergies Allergy (Verified 09/29/24 10:36) HPI Comments Details: Herberth is a very pleasant male. He is a patient Dr. Palomo ([place] [facility] [place]). He was seen for the following urologic issues - prostate cancer - recurrent hormonally sensitive PSA 14 Imaging - bone scan with unchanged T11 lesions since 2018 Previously had discussed low-dose abiraterone Would like to go back on finasteride Prescription given 4 month follow-up tele He was seeing at 89 he has a number of other medical issues that are starting to take priority. Biochemically recurrent castrate sensitive prostate cancer 05/09 - PSA 7.7, 09/07 5.7, 03/10 10.2 Prostate cancer: Initial low-grade prostate cancer with prostatectomy. 2004 - Had intermittent hormone therapy due to elevating PSA. PSA - 09/01 0.1, 04/03 0.2 T180, 10/03 0.2 T 115, 04/04 0.3, 10/04 0.3, 04/05 0.4, 11/04 1.0, 03/07 1.3, 07/08 1.6, 11/05 2.8, 12/06 3.3, 04/07 5.1, 09/06 4.3, 01/06 5.3, 09/07 5.7, 04/09 10.2 Prostate cancer was diagnosed 2004. Diagnosis was reached by needle biopsy, for elevated PSA, PSA at diagnosis 3.8. TNM Classification of Malignant Tumours (TNM) T1c. The D'Kathia (NCCN) risk category is Low Risk (PSA< 10, Gl < 7, T1c). Initial therapy included Primary treatment, Prostatectomy (RRP/Robotic) , Additional treatment, Observation , Additional treatment, Hormonal Blockade - Continuous 2010 GnRH agonists, , Additional treatment, Hormonal Blockade - Intermittent 2015, with, 5AR, Antiandrogen, , Additional treatment, Observation 2016. Recent imaging included 2015 , a bone scan negative - 2018 , a bone scan, focal T11 lesion unchanged from 12/01 - 12/06 bone scan with focal T11 lesion unchanged, DEX with osteopenia - 07/11 bone scan with focal T11 lesion unchanged [facility] Medical History Asthma HTN (hypertension) Erectile dysfunction after radical prostatectomy Prostate cancer Surgical History History of surgery H/O laminectomy Review of Systems Const Denies chills and Denies fever(s) Card Reports no additional complaints and Denies syncope Resp Denies cough GI Denies abdominal pain and Denies heartburn Reports as per HPI and Denies change in libido Neuro Denies syncope Psych Denies change in libido Endo Denies change in libido Physical Exam Const General: cooperative, healthy appearing, comfortable and no acute distress Orientation/consciousness: patient oriented x3 HEENT Face and sinus: Yes normal facial exam Mouth: moist mucous membranes Neck Neck: Yes normal visual inspection, Yes full ROM and Yes trachea midline Chest Chest palpation & inspection: normal inspection of the chest Resp Effort & Inspection: normal respiratory effort, able to speak in complete sentences and no respiratory distress GI Inspection: Yes normal to inspection Back/Spine/Pelvis Cervical Spine: normal cervical lordosis Thoracic/Lumbar Spine: thoracic and lumbar spine normal to inspection Skin General skin exam: no rashes or lesions noted Neuro General: patient oriented x3, gait normal, tone normal and moves all extremities Extrem General: Yes normal to inspection and Yes capillary refill normal Assessment & Plan Assessment & Plan (1) Prostate cancer: Comment: Low-grade radical prostatectomy 2004, rising PSA treated with intermittent hormones through 2009 Code(s): C61 - Malignant neoplasm of prostate Category: Medical (2) Rising PSA following treatment for malignant neoplasm of prostate: Code(s): R97.21 - Rising PSA following treatment for malignant neoplasm of prostate Category: Medical Plan Four month follow-up PSA Orders: Orders PSA,Total (Free>4and<10) 4 Months C61 - Malignant neoplasm of prostate, C79.51 - Secondary malignant neoplasm of bone Medications: New finasteride 5 mg PO DAILY 90 days 90 tabs 1RF C61 - Malignant neoplasm of prostate, C79.51 - Secondary malignant neoplasm of bone, N13.8 - Other obstructive and reflux uropathy, N40.1 - Benign prostatic hyperplasia with lower urinary tract symptoms, R33.9 - Retention of urine, unspecified Patient Instructions: This note is constructed using voice recognition software. While every effort has been made to ensure accuracy residential interior designer errors may have been included. Imaging studies, laboratory and physical exam results were discussed and reviewed in detail. No major barriers to patient understanding were identified. An opportunity to ask questions regarding the treatment plan was provided. All questions were answered. The patient expressed understanding and agreement with the above treatment plan. The patient is aware they should contact our office by phone for worsening of their current condition or the appearance of new urologic symptoms. Compliance is encouraged with any medications and followup testing that is ordered. It is a privilege to participate in the urologic care of your patient. If you have any questions or concerns regarding treatment for the above conditions, or other urologic issues, please do not hesitate to contact me. The office telephone contact is [phone]. Sincerely, Dr Bishop Kumar MD, [facility] - Urology Compassionate Specialist Care for the Genitourinary System Coding Level of Care Code Est Pt Level 3 (97764) Complex EM visit Add On G2211 Diagnoses Prostate cancer C61 Rising PSA following treatment for malignant neoplasm of prostate R97.21
--- OUTSIDE RECORDS SUMMARY | 2024-09-29 12:40 | XMS_ITS | Clinical Summary ---
Author Organization [facility] Address [address] [place] [address] Phone Care Team Providers Care Underwriting Director Name Role Phone Dwaine Palomo MD Primary Care Provider [phone] Surgical History Surgery Date Site/Laterality Comments HERNIA REPAIR PROCEDURE: AK REPAIR FIRST ABDOMINAL WALL HERNIA OTHER SURGICAL HISTORY PROCEDURE: AK EXPLORATION N/FLWD SURG NECK ARTERY OTHER SURGICAL HISTORY PROCEDURE: AK EXPLORATION N/FLWD SURG NECK ARTERY PROSTATECTOMY PROCEDURE: PROSTATECTOMY BACK SURGERY PROCEDURE: HISTORICAL BACK SURGERY OTHER SURGICAL HISTORY 12/04/2017 Right PROCEDURE: AK RPR 1ST INGUN HRNA AGE 4 YRS/> REDUCIBLE; COMMENT: ppain since then Medical History Medical History Date Comments High cholesterol DX:High cholest jorge H/O prostatectomy DX:H/O prostat ectomy Hypertension DX:Hypertension Heart attack ([facility] V24, [facility] V28) DX:Heart attack ([facility]) Prostate tumor DX:Prostate tumo r Sleep deficient DX:Sleep deficie nt COPD (chronic obstructive pu lmonary disease) ([facility] V24, [facility] V28) DX:COPD (chronic o bstructive pulmonary disease) ([facility]) Left carotid stenosis DX:Left ca rotid stenosis [...] Due Date Last Done Comments RSV Immunization Adult Patients (1 - 1-dose 75+ series) 2009 Cholesterol [...] age to complete this topic Meningococcal B Vaccine Aged Out No l onger eligible based on patient's age to complete this topic RSV Immunization Patients Under 20 months Aged Out No longer eligible based on patient's age to complete this topic Varicella Vaccines Aged Out No longer eligible based on patient's age to complete this topic Insurance MEDICARE [facility] Care Teams Underwriting Director Relationship Specialty Start Date End Date Dwaine Palomo MD [address] [place] [id number] PCP - General Internal Medicine 06/15/24
== END 2024-09-29 11:26 | disposition home or self-care (01) ==
LOC: HO.HUSH 10:33
PROVIDERS: PCP Internal Medicine; Visit Provider Urology
DX: C61 Malignant neoplasm of prostate (principal); R97.21 Rising PSA following treatment for malignant neoplasm of prostate
CPT/HCPCS: 99213; G2211

== ENCOUNTER → 2024-09-29 10:33 | Outpatient (BNVA) | payer MEDICARE, SELFPAY | PROVIDERS: PCP Internal Medicine; Visit Provider Urology | DX: C61 Malignant neoplasm of prostate (principal); R97.21 Rising PSA following treatment for malignant neoplasm of prostate | CPT/HCPCS: 99212 ==